=== PATIENT | female | born 1995 | race Hispanic/Latino ===

== ENCOUNTER → 2016-07-12 | Outpatient (CLI) | payer OTHER ==
[2016-07-12 15:33] LABS: BASO % 0.2 % (0.0-1.0); EOS # 0.2 K/mm3 (0.0-0.50); EOS % 2.2 % (0.0-3.0); LARGE UNSTAINED CELL # 0.1 K/mm3 (0.0-0.4); LARGE UNSTAINED CELL % 1.2 % (0.0-4.0); LYMPH # 2.6 K/mm3 (1.5-6.5); LYMPH % 24.9 % (24.0-44.0); MEAN CORPUSCULAR HGB CONC 33.7 g/dl (32.0-36.5); MEAN CORPUSCULAR VOLUME 91.8 fl (80.0-96.0); MONO # 0.4 K/mm3 (0.0-0.8); MONO % 3.4 % (0.0-5.0); NEUTROPHILS # 7.2 K/mm3 (1.8-7.7); NEUTROPHILS % 68.2 % (36.0-66.0); PLATELET COUNT, AUTOMATED 261 k/mm3 (150-450); RED CELL DISTRIBUTION WIDTH 12.6 % (11.5-14.5); WHITE BLOOD COUNT 10.5 K/mm3 (4.0-10.0)
== END ==
LOC: M LAB 13:34
PROVIDERS: ATTEND Advanced Practice Midwife
DX: Z34.82 Encounter for supervision of other normal pregnancy, second trimester (principal)

== ENCOUNTER → 2016-08-24 | Outpatient (REF) | payer OTHER | LOC: M LAB REF 16:39 | PROVIDERS: ATTEND Advanced Practice Midwife | DX: Z3A.35 35 weeks gestation of pregnancy (principal) ==

== ENCOUNTER → 2016-09-08 | Outpatient (REF) | payer OTHER ==
[~2016-09-08] MED LIST: ACET50TA PO; IBUP800T23 PO; LABE30TA PO; PRENTAB9 PO
== END ==
LOC: M LAB REF 17:23
PROVIDERS: ATTEND Advanced Practice Midwife
DX: Z3A.37 37 weeks gestation of pregnancy (principal); R03.0 Elevated blood-pressure reading, without diagnosis of hypertension

== ENCOUNTER → 2016-09-08 | Outpatient (CLI) | payer OTHER ==
[2016-09-08 18:58] LABS: MEAN CORPUSCULAR HEMOGLOBIN 31.5 pg (27.0-33.0); MEAN CORPUSCULAR HGB CONC 34.1 g/dl (32.0-36.5); MEAN CORPUSCULAR VOLUME 92.3 fl (80.0-96.0); RED CELL DISTRIBUTION WIDTH 12.9 % (11.5-14.5); WHITE BLOOD COUNT 10.2 K/mm3 (4.0-10.0)
[2016-09-08 19:17] LABS: ALT/SGPT 10 U/L (12-78); AST/SGOT 13 U/L (15-37); BILIRUBIN,TOTAL 0.3 MG/DL (0.2-1.0); CREATININE FOR GFR 0.66 MG/DL (0.55-1.02); GLOMERULAR FILTRATION RATE > 60.0 (>60); URIC ACID 4.6 MG/DL (2.6-6.0)
== END ==
LOC: M LAB 17:39
PROVIDERS: ATTEND Advanced Practice Midwife
DX: Z3A.37 37 weeks gestation of pregnancy (principal)

== ENCOUNTER 2016-09-10 11:35 | Inpatient (IN) | payer OTHER ==
[2016-09-10] VITALS (12 sets, daily range): BP systolic 100–136; BP diastolic 55–82
[2016-09-10] MEDS: miSOPROStol 50 MCG 1/2 TAB (S0191) PO SCH ×3 (13:18→21:25)
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
[2016-09-10 13:40] LABS: MEAN CORPUSCULAR HEMOGLOBIN 31.2 pg (27.0-33.0); MEAN CORPUSCULAR HGB CONC 34.9 g/dl (32.0-36.5); MEAN CORPUSCULAR VOLUME 89.4 fl (80.0-96.0); RED CELL DISTRIBUTION WIDTH 12.8 % (11.5-14.5); WHITE BLOOD COUNT 10.5 K/mm3 (4.0-10.0)
[2016-09-10 13:56] LABS: ALT/SGPT 12 U/L (12-78); AST/SGOT 13 U/L (15-37); BILIRUBIN,TOTAL 0.3 MG/DL (0.2-1.0); CREATININE FOR GFR 0.56 MG/DL (0.55-1.02); GLOMERULAR FILTRATION RATE > 60.0 (>60); URIC ACID 4.6 MG/DL (2.6-6.0)
[2016-09-11] VITALS (15 sets, daily range): BP systolic 87–166; BP diastolic 51–100
[2016-09-11] MEDS: miSOPROStol 50 MCG 1/2 TAB (S0191) PO SCH (01:26)
--- NOTE | 2016-09-11 01:50 | IPNPDOC ---
Obstetrical Progress Note Date of Service The patient was seen on 09/11/16 at 01:20. Progress Note SUBJECTIVE: Patient reports she is feeling some cramping but otherwise denies feeling contractions. Patient currently denies a headache, visual changes, or epigastric or right upper quadrant pain. OBJECTIVE: heart rate baseline 135, positive accelerations, no decelerations. Contractions are every 3-6 minutes. 3 doses of misoprostol been given in at this point. SVE: 1/80/-1, mid position, scant bloody show, intact membranes. Cephalic presentation noted with sterile vaginal exam. Kenney bulb was inserted into the cervix without difficulty and inflated with 40 mL of normal saline. VITAL SIGNS: Please see below. CURRENT LABS: Please see below. ASSESSMENT: IUP at 37 weeks 5 days gestation, preeclampsia with severe features , not in active labor, category 1 heart rate tracing. PLAN: Continue with 1 more dose of misoprostol. Anticipate Kenney bulb to follow- up within the next 6 hours. Discrete cervical ripening along with cervical change. Consider Pitocin and 4 hours. VS, I&O, 24H, Fishbone Vital Signs/I&O Vital Signs Label Value Date Time Patient Temperature 97.9 degrees F 09/10/162234 Temperature Source Tympanic 09/10/162234 Pulse 93 09/10/162234 Respiratory Rate 18 bpm 09/10/162234 Blood Pressure Assessment 134/76 (95) 09/10/162234 Source Automatic Cuff (NIBP) Pulse 96 09/10/169 Respiratory Rate 18 bpm 09/10/162338 Blood Pressure Assessment 117/82 (94) 09/10/169 Source Automatic Cuff (NIBP) Pulse 94 09/11/162 Respiratory Rate 20 bpm 09/11/16 013 Blood Pressure Assessment 131/78 (95) 09/11/16 013 Source Automatic Cuff (NIBP) Vital Signs Date Time Temp Pulse Resp B/P Pulse Ox O2 Delivery O2 Flow Rate FiO2 09/10/16 21:04 82 18 126/68 09/10/16 20:05 97.9 09/10/16 12:20 Room Air I&O- Last 24 Hours up to 6 AM 09/11/16 06:00 Intake Total 500 ml Balance 500 ml Laboratory Data 24H LABS Laboratory Tests 2 09/10/16 11:48: Serology Scanned Report Hepatitis B Testing 3/10/17 13:08: Creatinine 0.56, Aspartate Amino Transf (AST/SGOT) 13L, Alanine Aminotransferase (ALT/SGPT) 12, Lactate Dehydrogenase 200, Total Bilirubin 0.3, Uric Acid 4.6, Glomerular Filtration Rate > 60.0, Syphilis Serology NONREACTIVE CBC/BMP Laboratory Tests 09/10/16 13:08 Aspartate Amino Transf (AST/SGOT) 13 L, Alanine Aminotransferase (ALT/SGPT) 12, Lactate Dehydrogenase 200, Total Bilirubin 0.3, Uric Acid 4.6, Red Blood Count 4.16, Mean Corpuscular Volume 89.4, Mean Corpuscular Hemoglobin 31.2, Mean Corpuscular Hemoglobin Concent 34.9, Red Cell Distribution Width 12.8 DAMON SIMEON CNM Sep 11, 2016 01:38
[2016-09-11] MEDS ORDERED: LR 1,000 ML IV SCH (01:56)
[2016-09-11] MEDS ORDERED: OXYTOCIN DRIP 30 UNITS in APPROPRIATE DILUENT 1 EA IV SCH ×2 (02:00→11:33)
[2016-09-11] MEDS ORDERED: BUTORPHANOL 2 MG/ML INJ (J0595) IV ONE (02:45)
[2016-09-11] MEDS ORDERED: PROMETHAZINE INJ 25 MG/ML VIAL (J2550) IV ONE (02:45)
[2016-09-11] MEDS ORDERED: PENICILLIN G POTASSIUM IV 5 MU in D5W MINI-BAG PLUS 100 ML IV ONE (06:00)
--- NOTE | 2016-09-11 08:07 | IPNPDOC ---
Obstetrical Progress Note Date of Service The patient was seen on 09/11/16 at 07:45. Progress Note SUBJECTIVE: Patient appears to be comfortable after receiving a dose of Stadol and Phenergan. She is sleeping but easily arousable. OBJECTIVE: Kenney bulb was out at 05:20 and Pitocin was started at 05 41. heart rate baseline 140, moderate variability, positive accelerations, no decelerations. Contractions are every 1-6 minutes. Pitocin is presently a 6 mU/ m. VITAL SIGNS: Please see below. ASSESSMENT: IUP at 37 weeks 5 days gestation, a clamp so severe features, not in active labor, category 1 heart rate tracing PLAN: Today with Pitocin induction. Patient may receive an epidural if she desires at any point. VS, I&O, 24H, Fishbone Vital Signs/I&O Vital Signs Date Time Temp Pulse Resp B/P Pulse Ox O2 Delivery O2 Flow Rate FiO2 09/11/16 07:16 98.4 73 16 118/65 09/10/16 12:20 Room Air I&O- Last 24 Hours up to 6 AM 09/11/16 05:59 Intake Total 1200 ml Balance 1200 ml Laboratory Data 24H LABS CBC/BMP DAMON SIMEON CNM Sep 11, 2016 08:07
[2016-09-11] MEDS: PRENATAL VITAMIN TAB PO SCH (09:00)
[2016-09-11] MEDS: NICOTINE 7 MG/24 HR TRANSDERMAL TD SCH (09:00)
[2016-09-11] MEDS ORDERED: FENTANYL 2MCG/ML ROPIVACAINE 0.2% NACL 250 ML CADD As Ordered ONE (09:19)
--- NOTE | 2016-09-11 09:26 | IPNPDOC ---
Obstetrical Progress Note Date of Service The patient was seen on 09/11/16 at 09:18. Progress Note SUBJECTIVE: Patient reports she is uncomfortable and would like an epidural. OBJECTIVE: SVE: 580/-1. Patient has spontaneously ruptured prior to cervical exam. Fluid is clear and a moderate amount. Pitocin is at 10 mU/m. heart rate baseline 150, moderate variability, no accelerations, early and variable decelerations noted with contractions. Vital signs: 98.4, 90, 18, 120/62. ASSESSMENT: IUP at 37 weeks 5 days gestation, active labor, preeclampsia was severe features, category 2 heart rate tracing PLAN: Patient to get epidural per desire for pain management. Pitocin can be decreased down to 4 mU/m until after patient received epidural and with resolution of variable decelerations. Anticipate cervical change and spontaneous vaginal delivery. Dr. Marin aware of patient status and plan of care. DAMON SIMEON CNM Sep 11, 2016 09:26
[2016-09-11 09:42] LABS: MEAN CORPUSCULAR HEMOGLOBIN 30.5 pg (27.0-33.0); MEAN CORPUSCULAR HGB CONC 34.2 g/dl (32.0-36.5); MEAN CORPUSCULAR VOLUME 89.1 fl (80.0-96.0); RED CELL DISTRIBUTION WIDTH 12.7 % (11.5-14.5); WHITE BLOOD COUNT 16.5 K/mm3 (4.0-10.0)
[2016-09-11] MEDS ORDERED: PENICILLIN G POTASSIUM IV 2.5 MU in D5W 100 ML IV SCH (10:00)
[2016-09-11] MEDS ORDERED: METHYLERGONOVINE MALEATE 0.2 MG TAB PO PRN (11:45)
[2016-09-11] MEDS ORDERED: MEASLES,MUMPS,RUBELLA VACCINE INJ (MMR-II) (90707) SC SCH (11:45)
[2016-09-11] MEDS ORDERED: RHOGAM 300 MCG (1500 IU) INJ (J2790) IM SCH (11:45)
[2016-09-11] MEDS ORDERED: ACETAMINOPHEN 500 MG TAB PO PRN (11:45)
[2016-09-11] MEDS ORDERED: DOCUSATE SODIUM 100 MG CAP PO PRN (11:45)
[2016-09-11] MEDS ORDERED: DIBUCAINE 1% OINTMENT 30GM TOP PRN (11:45)
[2016-09-11] MEDS ORDERED: LIDOCAINE 1% MDV INJ 50 ML VIAL INFIL ONE (11:45)
[2016-09-11] MEDS ORDERED: ANUSOL HC CREAM 30GM TOP PRN (11:45)
--- NOTE | 2016-09-11 11:56 | DNPDOC ---
Delivery Note Delivery Note Nilda is a 20-year-old now G 1 P 1001 at 37.5 weeks' gestation who presented to labor and delivery for induction of labor due to preeclampsia with severe features. Her severe feature included frequent daily headaches for the last 2 days. She had 4 doses of Cytotec, a Kenney bulb, and Pitocin (26.7 mL ) for her induction. She ruptured spontaneously at 0906 to a moderate amount of clear fluid. Cervical exam proved patient was in active labor at 0914. She received an epidural for pain management that provided minimal relief. She progressed to fully dilated at 1043. Patient pushed to a spontaneous vaginal delivery at 1053 to a living female in the OA position with restitution to LOT. No nuchal cord noted. Shoulders delivered with ease and the corpus immediately followed. Baby placed on maternal abdomen crying and active. Cord clamped 2 and cut by patient 's sister after pulsation ceased. Spontaneous delivery of intact placenta with a three-vessel cord by Alonzo mechanism at 1059. Uterine hemostasis achieved by rapid infusion of IV Pitocin and uterine fundal massage. Perineum and vagina inspected and found to have a first degree perineal laceration that was repaired with a 3. [address]-1. Lidocaine 1% was used prior to repairing the perineal laceration. An eraser size hematoma is noted at the very base of the introitus. An ice diaper was applied to perineum after repair. EBL 150. Infant's 9/9. Weight 5 lbs. 5 oz, 2414 g. [place]'s name is Mili Kirk and she is bottle-feeding. Mother and baby are stable. Placenta sent to pathology due to marginal insertion of the cord, patient's preeclampsia was severe features, that is small for gestational age, and precipitous delivery. DAMON SIMEON CNM Sep 11, 2016 11:56
[2016-09-11] MEDS: IBUPROFEN 800 MG TAB PO PRN (12:30)
[2016-09-11] MEDS ORDERED: LABETALOL HCL 100 MG/20 ML VIAL IV STA (18:53)
[2016-09-11] MEDS: LABETALOL 200 MG TAB PO SCH (19:47)
--- NOTE | 2016-09-11 20:22 | IPNPDOC ---
Obstetrical Progress Note Date of Service The patient was seen on 09/11/16 at 19:30. Progress Note SUBJECTIVE: Patient was in the shower when I went to assess her. Instructed patient to get out of the shower. Also instructed nursing staff the patient should not be in the shower if she has a severe range blood pressure. Patient presently denies vaginal symptoms of preeclampsia. OBJECTIVE: PHYSICAL EXAMINATION: Assessment not done due to patient being in the shower. VITAL SIGNS: Please see below. CURRENT LABS: Please see below. ASSESSMENT: Less than 12 hours post-vaginal delivery, preeclampsia with severe features PLAN: Reviewed blood pressures with Dr. Marin. Patient was to get labetalol IV 20 mg stat via verbal order for verbalized blood pressure of 162/100. Patient never received IV labetalol dose and this verbalized blood pressure is not documented in the patient's chart. Reviewed with nursing staff why the patient did not receive IV labetalol and the response that they provided was that they were waiting for the order to be profiled through the pharmacy, although it was a stat medication that should've been given within 5 minutes of verbal order. It was also stated that they did not feel comfortable pushing IV labetalol on without a cardiac rehab nurse. Reviewed policy with nurses. 1 hour after verbal order patient had still not received IV labetalol nor a repeat blood pressure and the provider was not notified. Requested a repeat blood pressure that took more than 15 minutes to obtain from the staff. Blood pressure was not in the severe range. Staff instructed that the patient not be given IV labetalol. Reviewed with Dr. Marin and patient is to be started on labetalol 200 mg by mouth twice a day. Preeclamptic profile and a CBC ordered for her O600 on 09/12/2016. VS, I&O, 24H, Fishbone Vital Signs/I&O Vital Signs Date Time Temp Pulse Resp B/P Pulse Ox O2 Delivery O2 Flow Rate FiO2 09/11/16 19:47 82 143/82 09/11/16 18:33 98.5 18 09/10/16 12:20 Room Air I&O- Last 24 Hours up to 6 AM 09/11/16 06:00 Intake Total 2009 ml Balance 2009 ml Vital Signs Label Value Date Time Patient Temperature 98.5 degrees F 09/11/16 183 Temperature Source Tympanic 09/11/16 1833 Pulse 97 09/11/16 1833 Respiratory Rate 18 bpm 09/11/16 183 Blood Pressure Assessment 156/100 (118) 09/11/16 1833 Source Automatic Cuff (NIBP) Blood Pressure Assessment 143/75 (97) 09/11/16 1510 Source Automatic Cuff (NIBP) Laboratory Data CBC/BMP Laboratory Tests 09/11/16 09:30 Red Blood Count 4.68, Mean Corpuscular Volume 89.1, Mean Corpuscular Hemoglobin 30.5, Mean Corpuscular Hemoglobin Concent 34.2, Red Cell Distribution Width 12.7 DAMON SIMEON CNM Sep 11, 2016 20:22
[2016-09-12] VITALS (9 sets, daily range): BP systolic 130–176; BP diastolic 65–110
[2016-09-12 06:08] LABS: MEAN CORPUSCULAR HEMOGLOBIN 29.5 pg (27.0-33.0); MEAN CORPUSCULAR HGB CONC 33.1 g/dl (32.0-36.5); MEAN CORPUSCULAR VOLUME 89.1 fl (80.0-96.0); RED CELL DISTRIBUTION WIDTH 12.9 % (11.5-14.5); WHITE BLOOD COUNT 11.7 K/mm3 (4.0-10.0)
[2016-09-12 06:49] LABS: ALT/SGPT 10 U/L (12-78); AST/SGOT 22 U/L (15-37); BILIRUBIN,TOTAL 0.3 MG/DL (0.2-1.0); CREATININE FOR GFR 0.59 MG/DL (0.55-1.02); GLOMERULAR FILTRATION RATE > 60.0 (>60); URIC ACID 4.8 MG/DL (2.6-6.0)
[2016-09-12] MEDS: NICOTINE 7 MG/24 HR TRANSDERMAL TD SCH (09:00)
[2016-09-12] MEDS: PRENATAL VITAMIN TAB PO SCH (09:30)
[2016-09-12] MEDS: LABETALOL 200 MG TAB PO SCH ×2 (09:31→21:22)
--- NOTE | 2016-09-12 13:15 | IPNPDOC ---
Obstetrical Progress Note Date of Service The patient was seen on 09/12/16 at 12:46. Progress Note SUBJECTIVE: Patient reports she feels fine. Denies pain. Denies preeclamptic symptoms. Voiding without difficulty. OBJECTIVE: PHYSICAL EXAMINATION: VITAL SIGNS: Please see below. FUNDUS: Firm and 1 below uterus. Nontender. PERINEUM: Lochia moderate and bright red. EXTREMITIES: Bilateral lower legs and feet with generalized edema. Reflexes 3+. CURRENT LABS: Please see below. ASSESSMENT: Day 1 , severe preeclampsia PLAN: continue with PO labetalol. Continue with supportive nursing care. Anticipate discharge tomorrow with follow up in office for BP. Reviewed danger signs that patient needs to report to nursing staff. VS, I&O, [facility]O Vital Signs Date Time Temp Pulse Resp B/P Pulse Ox O2 Delivery O2 Flow Rate FiO2 09/12/16 10:10 97.9 100 20 148/82 09/10/16 12:20 Room Air I&O- Last 24 Hours up to 6 AM 09/12/16 05:59 Intake Total 810 ml Output Total 150 ml Balance 660 ml Laboratory Data 24H LABS Laboratory Tests 2 09/12/16 05:33: Creatinine 0.59, Aspartate Amino Transf (AST/SGOT) 22, Alanine Aminotransferase (ALT/SGPT) 10L, Lactate Dehydrogenase 224, Total Bilirubin 0.3, Uric Acid 4.8, Glomerular Filtration Rate > 60.0 CBC/BMP Laboratory Tests 09/12/16 05:33 Aspartate Amino Transf (AST/SGOT) 22, Alanine Aminotransferase (ALT/SGPT) 10 L, Lactate Dehydrogenase 224, Total Bilirubin 0.3, Uric Acid 4.8 09/12/16 05:34 Red Blood Count 3.79 L, Mean Corpuscular Volume 89.1, Mean Corpuscular Hemoglobin 29.5, Mean Corpuscular Hemoglobin Concent 33.1, Red Cell Distribution Width 12.9 DAMON SIMEON CNM Sep 12, 2016 12:47
[2016-09-12] MEDS ORDERED: LABETALOL 100 MG TAB PO ONE (23:00)
[2016-09-12] MEDS: IBUPROFEN 800 MG TAB PO PRN (23:15)
[2016-09-13 00:30] VITALS: BP 102/50
[2016-09-13 02:12] VITALS: BP 96/55
[2016-09-13 06:06] VITALS: BP 127/73
--- NOTE | 2016-09-13 07:49 | DS.PDOC ---
Discharge Summary General Date of Admission Sep 10, 2016 at 11:35 Date of Discharge 09/10/2016 Attending Physician: DAMON SIMEON CNM Specialist/Consultants Involve: RICKY MARIN MD. Discharge Summary PROCEDURES PERFORMED DURING STAY: None. ADMITTING DIAGNOSES: 1. IUP at 37 weeks 4 days gestation. 2. preeclampsia was severe features. DISCHARGE DIAGNOSES: 1. Vaginal delivery, 2 days . 2. Preeclampsia. COMPLICATIONS/CHIEF COMPLAINT: Induction For Pre-Eclampsia with severe features. HISTORY OF PRESENT ILLNESS: Patient is a 20-year-old 001 who is 2 days . She was an induction for preeclampsia was severe features at 37 weeks 4 days gestation and delivered at 37 weeks 5 days gestation. After delivery she exhibited some high range blood pressures and was put on labetalol 200 mg by mouth twice a day after consulting Dr. Marin. Left-sided patient exhibited a severe range pressure and her labetalol was increased by 100 mg. Patient's blood pressures have been managed on labetalol 300 mg at present. She denies signs or symptoms of preeclampsia at this time. DISCHARGE MEDICATIONS: Labetalol 300 mg by mouth twice a day, OTC Motrin and Tylenol. ALLERGIES: Please see below. LABORATORY DATA: Please see below. ACTIVITY: As tolerated. DIET: Regular. DISCHARGE INSTRUCTIONS: 1. Patient may be discharged home after 5 PM today if blood pressures are stable.. 2. Patient's follow-up in the office this Tuesday for blood pressure check. Reviewed preeclamptic signs and symptoms. Patient instructed to call provider with any of these symptoms. 3. Reviewed signs of mastitis, endometritis, hemorrhage, and DVT. Educated on breast care, pelvic rest, eli care.. DISCHARGE CONDITION: Stable. Vital Signs/I&Os Vital Signs Date Time Temp Pulse Resp B/P Pulse Ox O2 Delivery O2 Flow Rate FiO2 09/13/16 06:06 96.6 83 18 127/73 09/10/16 12:20 Room Air Discharge Medications No Active Prescriptions or Reported Meds Allergies Coded Allergies: No Known Drug Allergy (Verified Allergy, Unknown, 09/10/16) DAMON SIMEON CNM Sep 13, 2016 07:49
[2016-09-13] MEDS ORDERED: LABE30TA PO (07:51)
[2016-09-13] MEDS ORDERED: LABETALOL 100 MG TAB PO SCH (09:00)
[2016-09-13] MEDS: NICOTINE 7 MG/24 HR TRANSDERMAL TD SCH (09:00)
[2016-09-13 10:00] VITALS: BP 133/75
[2016-09-13] MEDS: PRENATAL VITAMIN TAB PO SCH (10:07)
[2016-09-13 14:00] VITALS: BP 136/71
[2016-09-13] MEDS ORDERED: IBUP800T23 PO (16:51)
[2016-09-13] MEDS ORDERED: PRENTAB9 PO (16:51)
[2016-09-13] MEDS ORDERED: ACET50TA PO (16:51)
== END 2016-09-13 17:35 | disposition home or self-care (01) | DRG 560 ==
LOC: M LDI 11:35 → M OBS 09-11 14:47
PROVIDERS: ADMIT Advanced Practice Midwife; ATTEND Advanced Practice Midwife
PROC: 3E0P7GC Introduction of Other Therapeutic Substance into Female Reproductive, Via Natural or Artificial Opening (ICD-10-PCS; 2016-09-10)
PROC: 10E0XZZ Delivery of Products of Conception, External Approach (ICD-10-PCS; principal; 2016-09-11)
PROC: 0HQ9XZZ Repair Perineum Skin, External Approach (ICD-10-PCS; 2016-09-11)
DX: O14.14 Severe pre-eclampsia complicating childbirth (principal); O71.7 Obstetric hematoma of pelvis; Z3A.37 37 weeks gestation of pregnancy; O99.334 Smoking (tobacco) complicating childbirth; F17.210 Nicotine dependence, cigarettes, uncomplicated; O62.3 Precipitate labor; O70.0 First degree perineal laceration during delivery; Z37.0 Single live birth

== ENCOUNTER → 2017-03-13 | Outpatient (REF) | payer OTHER ==
[~2017-03-13] MED LIST changes: +IBUP1TAB7 PO; -IBUP800T23 PO
== END ==
LOC: M LAB REF 21:55
PROVIDERS: ATTEND Physician Assistant Medical
DX: J02.9 Acute pharyngitis, unspecified (principal)

== ENCOUNTER 2018-01-04 23:17 | Emergency (ER) | payer OTHER ==
[2018-01-05 01:18] LABS: BASO % 0.2 % (0.0-1.0); EOS # 0.2 10^3/uL (0.0-0.50); EOS % 1.8 % (0.0-3.0); HEMATOCRIT 44.4 % (36.0-47.0); HEMOGLOBIN 15.5 g/dl (12.0-15.5); IMMATURE GRANULOCYTE % 0.3 % (0-3.0); LYMPH # 3.6 10^3/uL (1.5-6.5); LYMPH % 32.6 % (24.0-44.0); MEAN CORPUSCULAR HEMOGLOBIN 30.8 pg (27.0-33.0); MEAN CORPUSCULAR HGB CONC 34.9 g/dl (32.0-36.5); MEAN CORPUSCULAR VOLUME 88.1 fl (80.0-96.0); MONO # 0.6 10^3/uL (0.0-0.8); MONO % 5.2 % (0.0-5.0); NEUTROPHILS # 6.6 10^3/uL (1.8-7.7); NEUTROPHILS % 59.9 % (36.0-66.0); PLATELET COUNT, AUTOMATED 238 10^3/uL (150-450); RED BLOOD COUNT 5.04 10^6/uL (4.00-5.40); RED CELL DISTRIBUTION WIDTH 12.8 % (11.5-14.5); WHITE BLOOD COUNT 11.1 10^3/uL (4.0-10.0)
[2018-01-05] MEDS: ACETAMINOPHEN TAB 650MG DOSE (2X325MG) PO (01:20)
[2018-01-05] MEDS: diphenhydrAMINE INJ 50MG/ML VIAL (J1200) IV (01:20)
[2018-01-05] MEDS: FAMOTIDINE INJ 20MG/2ML VIAL (S0028) IVP (01:20)
[2018-01-05] MEDS: methylPREDNISolone INJ 125 MG/2 ML VIAL (J2930) IV (01:20)
[2018-01-05 01:37] LABS: ANION GAP 11 MEQ/L (8-16); BLOOD UREA NITROGEN 7 MG/DL (7-18); CALCIUM LEVEL 8.4 MG/DL (8.5-10.1); CARBON DIOXIDE LEVEL 24 MEQ/L (21-32); CHLORIDE LEVEL 109 MEQ/L (98-107); GLOMERULAR FILTRATION RATE > 60.0 (>60); GLUCOSE, FASTING 82 MG/DL (70-100); POTASSIUM SERUM 3.9 MEQ/L (3.5-5.1); SODIUM LEVEL 144 MEQ/L (136-145)
== END 2018-01-05 03:02 | disposition home or self-care (01) ==
LOC: M ED 23:17
DX: T78.40XA Allergy, unspecified, initial encounter (principal); Y92.9 Unspecified place or not applicable; Y93.9 Activity, unspecified; Z88.0 Allergy status to penicillin
CPT/HCPCS: J1200

== ENCOUNTER 2018-07-28 16:27 | Emergency (ER) | payer OTHER, SELFPAY ==
[~2018-07-28] VITALS: Ht 160 cm; Wt 95.0 kg
[~2018-07-28 16:27] MED LIST changes: -ACET50TA PO; +LABE300T2 PO; -LABE30TA PO; +MAPA500T2 PO; +PRED20TA PO
[2018-07-28] MEDS ORDERED: ALBUTEROL 90 MCG/ACT 8GM HFA INHALER INH ONE (17:45)
[2018-07-28] MEDS ORDERED: VENTAER INH (18:02)
[2018-07-28] MEDS ORDERED: MUCI600T37 PO (18:02)
[2018-07-28 18:08] VITALS: BP 134/80
== END 2018-07-28 18:28 | disposition home or self-care (01) ==
LOC: M ED 16:27
DX: J40 Bronchitis, not specified as acute or chronic (principal); F41.9 Anxiety disorder, unspecified; F17.210 Nicotine dependence, cigarettes, uncomplicated; Z88.0 Allergy status to penicillin

== ENCOUNTER 2018-08-06 18:12 | Emergency (ER) | payer OTHER ==
[~2018-08-06] VITALS: Ht 160 cm; Wt 90.9 kg
[2018-08-06 18:12] VITALS: BP 127/74
[~2018-08-06 18:12] MED LIST changes: +MUCI600T37 PO; +VENTAER INH
[2018-08-06] MEDS ORDERED: BENZONATATE 100 MG CAP PO ONE (19:00)
[2018-08-06] MEDS ORDERED: CEFDINIR 300 MG CAP (OMNICEF) PO ONE (19:00)
[2018-08-06] MEDS ORDERED: BENZ200C70 PO (19:01)
[2018-08-06] MEDS ORDERED: CEFD1CAP8 PO (19:01)
== END 2018-08-06 19:23 | disposition home or self-care (01) ==
LOC: M ED 18:12
DX: H66.001 Acute suppurative otitis media without spontaneous rupture of ear drum, right ear (principal); Z88.0 Allergy status to penicillin

== ENCOUNTER 2018-12-04 19:33 | Emergency (ER) | payer OTHER ==
[~2018-12-04] VITALS: Ht 160 cm; Wt 90.9 kg
[2018-12-04 19:33] VITALS: BP 130/83
[~2018-12-04 19:33] MED LIST changes: +BENZ200C70 PO; +CEFD1CAP8 PO
== END 2018-12-04 20:05 | disposition left against medical advice (07) ==
LOC: M ED 19:33
DX: R05 Cough (principal); Z53.21 Procedure and treatment not carried out due to patient leaving prior to being seen by health care provider

== ENCOUNTER 2019-05-06 19:17 | Emergency (ER) | payer OTHER ==
[~2019-05-06] VITALS: Ht 160 cm; Wt 90.9 kg
[2019-05-06 20:02] VITALS: BP 141/67
--- NOTE | 2019-05-07 01:43 | REP ---
Clinical: Trauma. Technique: AP, lateral, bilateral oblique views right hand . Findings: The osseous structures and joint spaces are intact and normal. There is no evidence for acute fracture or dislocation. Surrounding soft tissues are unremarkable. No subcutaneous emphysema or radiodense foreign body. Impression: No acute fracture or dislocation. Electronically Signed by Bin Norton MD 05/07/2019 01:34 A
== END 2019-05-06 20:46 | disposition home or self-care (01) ==
LOC: M ED 19:17
DX: S60.221A Contusion of right hand, initial encounter (principal); W19.XXXA Unspecified fall, initial encounter; Y92.099 Unspecified place in other non-institutional residence as the place of occurrence of the external cause; Y93.89 Activity, other specified; Y99.9 Unspecified external cause status; F17.200 Nicotine dependence, unspecified, uncomplicated; Z88.0 Allergy status to penicillin

== ENCOUNTER → 2020-02-14 | Outpatient (REF) | payer OTHER ==
[2020-03-20 07:22] LABS: BASO % 0.3 % (0.0-1.0); EOS # 0.2 10^3/uL (0.0-0.5); HEMATOCRIT 42.2 % (36.0-47.0); HEMOGLOBIN 14.9 g/dl (12.0-15.5); LYMPH # 3.2 10^3/uL (1.5-5.0); LYMPH % 33.7 % (24.0-44.0); MEAN CORPUSCULAR HEMOGLOBIN 31.2 pg (27.0-33.0); MEAN CORPUSCULAR HGB CONC 35.3 g/dl (32.0-36.5); MEAN CORPUSCULAR VOLUME 88.3 fl (80.0-96.0); MONO # 0.5 10^3/uL (0.0-0.8); MONO % 5.6 % (0.0-5.0); NEUTROPHILS # 5.5 10^3/uL (1.5-8.5); NEUTROPHILS % 58.1 % (36.0-66.0); PLATELET COUNT, AUTOMATED 264 10^3/uL (150-450); RED BLOOD COUNT 4.78 10^6/uL (4.00-5.40); WHITE BLOOD COUNT 9.5 10^3/uL (4.0-10.0)
[2020-03-23 11:13] LABS: CHLAMYDIA DNA AMPLIFICATION NEGATIVE (NEGATIVE); GC DNA AMPLIFICATION NEGATIVE (NEGATIVE)
[2020-04-02 06:52] LABS: HEPATITIS B SURFACE ANTIGEN NEGATIVE (NEGATIVE); HEPATITIS C VIRUS ABY INDEX 0.1 INDEX (<0.8); HIV 1&2 SCREEN CENTAUR NEGATIVE (NEGATIVE)
== END ==
LOC: M SFHCWAGY 14:50
PROVIDERS: ATTEND Advanced Practice Midwife
DX: Z87.59 Personal history of other complications of pregnancy, childbirth and the puerperium (principal); Z34.91 Encounter for supervision of normal pregnancy, unspecified, first trimester

== ENCOUNTER → 2020-03-14 | Outpatient (CLI) | payer OTHER ==
[2020-03-14 19:50] LABS: TOTAL PROTEIN,RANDOM URINE 10.1 MG/DL (0.0-12.0)
[2020-03-14 20:18] LABS: ALT/SGPT 15 U/L (12-78); BILIRUBIN,TOTAL 0.5 MG/DL (0.2-1.0); CREATININE FOR GFR 0.61 MG/DL (0.55-1.30); GLOMERULAR FILTRATION RATE > 60.0 (>60); LDH LACTATE DEHYDROGENASE 189 U/L (84-246); URIC ACID 2.8 MG/DL (2.6-6.0)
== END ==
LOC: M PLALAB 14:26
PROVIDERS: ATTEND Advanced Practice Midwife
DX: O09.292 Supervision of pregnancy with other poor reproductive or obstetric history, second trimester (principal)

== ENCOUNTER → 2020-04-14 | Outpatient (CLI) | payer OTHER ==
--- NOTE | 2020-04-17 13:29 | REP ---
RENAL SONOGRAPHY HISTORY: Chronic kidney disease stage III. Frequency of urination. FINDINGS: Renal cortical echogenicity pattern is normal and contours are smooth. No hydronephrosis is seen. Multiple bilateral renal cysts are observed. Right renal dimensions are 10.7 x 6.4 x 5.4 cm. The left kidney measures 11.9 x 5.3 x 5.6 cm. Left-sided renal cysts include a septated 5.4 cm cyst at the upper pole, a 3.2 cm cyst in the upper pole, and a 0.9 cm cyst in the lower pole. On the right, there are three upper pole cysts visible measuring 0.9, 3.4, and 1.2 cm in greatest diameter respectively. IMPRESSION: Bilateral renal cortical cysts. No mass or hydronephrosis is seen. MTDD
== END ==
LOC: M WHC 14:25
PROVIDERS: ATTEND Advanced Practice Midwife
DX: O09.292 Supervision of pregnancy with other poor reproductive or obstetric history, second trimester (principal); Z3A.00 Weeks of gestation of pregnancy not specified; O26.832 Pregnancy related renal disease, second trimester; N28.1 Cyst of kidney, acquired

== ENCOUNTER → 2020-05-15 | Outpatient (CLI) | payer OTHER ==
--- NOTE | 2020-05-15 18:30 | REP ---
INDICATION: F/U ANATOMY. COMPARISON: 04/14/2020 TECHNIQUE: Follow-up for anatomy screen completion FINDINGS: Scanning demonstrates a viable single intrauterine gestation in a cephalic lie. motion is observed and heart rate is recorded at 156 beats per minute. An anterior, grade 1 placenta is seen without evidence of previa. Amniotic fluid is subjectively normal. Closed cervical length is measured at 4.3 cm transabdominally. No extrauterine abnormality is observed. There has been appropriate interval growth. No anomaly is seen. The following anatomic structures are identified and felt to be sonographically unremarkable: diaphragm, left ventricular outflow tract. The right ventricular outflow tract and four-chamber view are still suboptimally visualized due to position. Remainder of the anatomy was previously seen and unremarkable. Biometry chart: BPD 5.6 cm; 23 weeks 1 days Head circumference 21.9 cm; 24 weeks 0 days Abdominal circumference 19.3 cm; 24 weeks 0 days Femur length 4 cm; 22 weeks 6 days Humeral length 3.8 cm; 23 weeks 3 days HC/AC ratio normal 1.14 Cephalic index normal 0.69 (normal range is 0.70-0.86) Estimated weight 609 grams, 1 pounds 5 ounces, 41st percentile for 23 weeks 4 days. IMPRESSION: Viable single intrauterine gestation at 23 weeks 3 days by today's composite sonographic criteria. Expected gestational age estimate based on prior sonography is 23 weeks is 4 days. SOCORRO by prior sonography 09/07/2020 . No anomaly. Anatomy screen still incomplete as the four-chamber view and left ventricular outflow tract are still not visible. This is due to lie <Electronically signed by Kishan Suarez > 05/15/20 0415
== END ==
LOC: M WHC 13:44
PROVIDERS: ATTEND Advanced Practice Midwife
DX: Z34.92 Encounter for supervision of normal pregnancy, unspecified, second trimester (principal); Z3A.23 23 weeks gestation of pregnancy

== ENCOUNTER → 2020-06-06 | Outpatient (REF) | payer OTHER ==
[2020-06-06 16:20] LABS: HEMATOCRIT 40.2 % (36.0-47.0); HEMOGLOBIN 13.4 g/dl (12.0-15.5); MEAN CORPUSCULAR HEMOGLOBIN 30.7 pg (27.0-33.0); MEAN CORPUSCULAR HGB CONC 33.3 g/dl (32.0-36.5); MEAN CORPUSCULAR VOLUME 92.2 fl (80.0-96.0); PLATELET COUNT, AUTOMATED 247 10^3/uL (150-450); RED BLOOD COUNT 4.36 10^6/uL (4.00-5.40); WHITE BLOOD COUNT 9.2 10^3/uL (4.0-10.0)
== END ==
LOC: M PLALAB 13:20
PROVIDERS: ATTEND Advanced Practice Midwife
DX: Z3A.22 22 weeks gestation of pregnancy (principal)

== ENCOUNTER → 2020-07-10 | Outpatient (CLI) | payer OTHER ==
--- NOTE | 2020-07-10 16:56 | REP ---
INDICATION: F/U ANATOMY. COMPARISON: 05/15/2020. TECHNIQUE: Real-time sonographic evaluation of the gravid uterus performed. FINDINGS: Estimated gestational age is31 weeks 4 days, EDC 09/07/2020. Today's measurements indicate appropriate growth. Presentation: Cephalic Placenta anterior, grade 2, without evidence of placenta previa. heart rate is recorded at 139 beats per minute. Amniotic fluid is subjectively normal. OLIVIA 13.3, normal range 8.7-24.0. Closed cervical length is measured at 4.1 cm. Biometry chart: BPD: 76 mm, 30 weeks 4 days, 37th percentile. HC: 292 mm, 32 weeks 1 days, 60th percentile AC: 276 mm, 31 weeks 4 days, 52nd percentile Femur length: 57 mm, 30 weeks 0 days, 16 3 percentile HC to AC ratio: 1.06, normal range 0.96-1.15. Estimated weight: 1694g, 26th percentile. The four-chamber heart as well as right and left ventricular outflow tracts are visualized and appear grossly unremarkable. IMPRESSION: Viable single intrauterine gestation as above. <Electronically signed by Trent Black > 07/10/20 [id number]
== END ==
LOC: M WHC 11:54
PROVIDERS: ATTEND Advanced Practice Midwife
DX: Z36.2 Encounter for other antenatal screening follow-up (principal); O09.292 Supervision of pregnancy with other poor reproductive or obstetric history, second trimester; Z3A.31 31 weeks gestation of pregnancy

== ENCOUNTER → 2020-08-11 | Outpatient (REF) | payer OTHER | LOC: M SFHCWAGY 13:32 | PROVIDERS: ATTEND Obstetrics & Gynecology | DX: Z3A.38 38 weeks gestation of pregnancy (principal) ==

== ENCOUNTER 2020-09-11 12:33 | Inpatient (IN) | payer OTHER ==
[2020-09-11] VITALS (9 sets, daily range): BP systolic 105–134; BP diastolic 56–74
[~2020-09-11] VITALS: Ht 160 cm; Wt 97.6 kg
[2020-09-11] MEDS ORDERED: ASPI81CH10 (12:56)
[2020-09-11 13:55] LABS: HEMATOCRIT 40.6 % (36.0-47.0); HEMOGLOBIN 13.9 g/dl (12.0-15.5); MEAN CORPUSCULAR HEMOGLOBIN 30.2 pg (27.0-33.0); MEAN CORPUSCULAR HGB CONC 34.2 g/dl (32.0-36.5); MEAN CORPUSCULAR VOLUME 88.1 fl (80.0-96.0); PLATELET COUNT, AUTOMATED 229 10^3/uL (150-450); RED BLOOD COUNT 4.61 10^6/uL (4.00-5.40); WHITE BLOOD COUNT 10.6 10^3/uL (4.0-10.0)
[2020-09-11 14:19] LABS: ALT/SGPT 10 U/L (12-78); BILIRUBIN,TOTAL 0.4 MG/DL (0.2-1.0); CREATININE FOR GFR 0.57 MG/DL (0.55-1.30); GLOMERULAR FILTRATION RATE > 60.0 (>60); LDH LACTATE DEHYDROGENASE 174 U/L (84-246); URIC ACID 4.5 MG/DL (2.6-6.0)
[2020-09-11 14:26] LABS: APPEARANCE, URINE HAZY (CLEAR); BACTERIA, URINE AUTO NEGATIVE (NEGATIVE); BILIRUBIN, URINE AUTO NEGATIVE (NEGATIVE); BLOOD, URINE BLOOD NEGATIVE (NEGATIVE); COLOR, URINE YELLOW (YELLOW); GLUCOSE, URINE (UA) AUTO NEGATIVE (NEGATIVE); KETONE, URINE AUTO NEGATIVE (NEGATIVE); LEUKOCYTE ESTERASE, URINE AUTO NEGATIVE (NEGATIVE); MUCUS, URINE SMALL (NEGATIVE); NITRITE, URINE AUTO NEGATIVE (NEGATIVE); PROTEIN, URINE AUTO 1+ mg/dL (NEGATIVE); RBC, URINE AUTO 1 /HPF (0-3); SPECIFIC GRAVITY URINE AUTO 1.023 (1.002-1.035); SQUAMOUS EPITHELIAL CELL UR AU 3 /HPF (0-6); UROBILINOGEN, URINE AUTO 0.2 mg/dL (0.0-2.0); WBC, URINE AUTO 2 /HPF (0-3)
[2020-09-11] MEDS: miSOPROStol 50MCG 1/2 TABLET PO SCH ×2 (14:26→18:49)
[2020-09-11 14:56] LABS: TOTAL PROTEIN,RANDOM URINE 44.2 MG/DL (0.0-12.0)
[2020-09-11] MEDS ORDERED: OXYTOCIN DRIP 30 UNITS in IV 1 EA IV SCH (23:15)
[2020-09-11] MEDS ORDERED: LR 1,000 ML IV SCH (23:15)
--- NOTE | 2020-09-11 23:23 | HPEPDOC ---
Obstetrical History & Physical General Date of Admission Sep 11, 2020 at 12:33 History of Present Illness 24-year-old 2 para 1 who presents at 40 weeks 4 days estimated gestational age for induction of labor secondary to gestational hypertension. She was seen last week and again today in the office where she was noted to have elevated blood pressures. She denies any symptoms at this time. Chief Complaint: Gestational Hypertension, Induction of labor Information Provided By: Patient Age: 24 : 2 Livin Care Care: Good Care Dating Final EDC: Sep 07, 2020 Final EDC by: LMP Past Medical History Past Obstetrical History : Date of Delivery: Sep 11, 2016 Type of Delivery: Spontaneous Vaginal Del. Sex of Infant: Female Past Medical History Surgical History: Denies/None Family History Significant Family History: Diabetes Social History Marital Status: Single Psychosocial History: No pertinent psych hx Alcohol: Denies Drugs: denies Allergies Coded Allergies: amoxicillin (Verified Allergy, Unknown, 05/06/19) RASH Medications Miscellaneous Medications Aspirin (Aspirin) 81 Mg Tab.chew Physical Examination Physical Examination GENERAL: Alert and oriented times three. BREAST: . ABDOMEN: Gravid and non-tender to touch. FETUS: Is vertex (VTX) by sterile vaginal examination (SVE), fetus is vertex (VTX) by [place]. HEART RATE: Regular rate and rhythm. LUNGS: Clear to auscultation (CTA). Vital Signs/I&O Vital Signs Date Time Temp Pulse Resp B/P (MAP) Pulse Ox O2 Delivery O2 Flow Rate FiO2 09/11/20 18:17 90 130/74 (92) Laboratory Data 24H LABS Laboratory Tests 2 09/11/20 12:44: Serology Scanned Report Hepatitis B Testing 09/11/20 13:37: Nucleated Red Blood Cells % (auto) 0.0, Glomerular Filtration Rate > 60.0, Uric Acid 4.5, Total Bilirubin 0.4, Aspartate Amino Transf (AST/SGOT) 7, Alanine Aminotransferase (ALT/SGPT) 10L, Lactate Dehydrogenase 174, Syphilis Serology NONREACTIVE 09/11/20 14:11: Urine Color YELLOW, Urine Appearance HAZY, Urine pH 6.0, Urine Specific [place] 1.023, Urine Protein 1+H, Urine Glucose (Auto)(UA) NEGATIVE, Urine Ketones (Auto) NEGATIVE, Urine Blood NEGATIVE, Urine Nitrite NEGATIVE, Urine Bilirubin NEGATIVE, Urine Urobilinogen 0.2, Urine Leukocyte Esterase (Auto) NEGATIVE, Urine WBC (Auto) 2, Urine RBC (Auto) 1, Urine Hyaline Casts (Auto) 0, Urine Bacteria (Auto) NEGATIVE, Urine Squamous Epithelial Cells 3, Urine Mucus (Auto) SMALL, Urine Sperm (Auto) , Urine Random Creatinine 231.0, Urine Random Total Protein 44.2H CBC/BMP Laboratory Tests 09/11/20 13:37 Pertinent Laboratoy Data Blood Type: B+ RBC Antibody Screen: Negative HIV: Negative Hepatitis B: Negative Hepatitis C: Negative Rapid Plasma Reagin: Nonreactive Rubella: Immune Chlamydia/Gonorrhea: Negative Group B Streptococcus: Negative Glucose Tolerance Test: 88 Anatomy Ultrasound Placenta Location: Anterior Normal Anatomy: Yes Placenta Previa: No Vaginal Examination Dilation: 1cm Effacement: 50% Station: -3 Presentation: Cephalic presentation Assessment Variability: Moderate Decelerations: None Assessment/Plan Assessment 24-year-old 2 para 1 at 40 weeks 4 days estimated gestational age with gestational hypertension Reassuring status Plan Admit and orient. Human Resources Coordinator and consent. Diet: Regular. Group B Streptococcus (GBS) negative. Labs and intravenous (IV) per unit protocol. Counseled on Pitocin and induction of labor (IOL). Anticipate normal spontaneous delivery (). C-S as appropriate. Labor and Delivery Counseling -Patient been thoroughly counseled in regards to induction labor. Patient has been counseled on medications as well as procedures performed in labor and delivery. Patient also verbally consented to the emergency surgery blood products anesthesia and desires to proceed with induction of labor. Will initiate her induction with 50g of misoprostol orally. RICKY MATIAS MD. Sep 11, 2020 23:23
[2020-09-12] VITALS (13 sets, daily range): BP systolic 117–152; BP diastolic 58–91
[2020-09-12] MEDS ORDERED: BUTORPHANOL 2 MG/ML INJ (J0595) IV ONE (01:25)
[2020-09-12] MEDS ORDERED: PROMETHAZINE INJ 25 MG/ML VIAL (J2550) IV ONE (01:25)
[2020-09-12] MEDS ORDERED: OXYTOCIN DRIP 30 UNITS in IV 1 EA IV SCH (04:21)
[2020-09-12] MEDS ORDERED: IBUPROFEN 800 MG TAB PO PRN (04:25)
[2020-09-12] MEDS ORDERED: MEASLES,MUMPS,RUBELLA VACCINE INJ (MMR-II) (90707) SC SCH (04:25)
[2020-09-12] MEDS ORDERED: IBUPROFEN 600MG TAB PO PRN (04:25)
[2020-09-12] MEDS ORDERED: ANUSOL HC CREAM 30GM TOP PRN (04:25)
[2020-09-12] MEDS ORDERED: RHOGAM 300 MCG (1500 IU) INJ (J2790) IM SCH (04:25)
[2020-09-12] MEDS ORDERED: DOCUSATE SODIUM 100MG CAPSULE PO PRN (04:25)
[2020-09-12] MEDS ORDERED: METHYLERGONOVINE MALEATE 0.2 MG TAB PO PRN (04:25)
[2020-09-12] MEDS ORDERED: MOM 30ML SUSPENSION UDC PO PRN (04:25)
[2020-09-12] MEDS ORDERED: DIBUCAINE 1% OINTMENT 30GM TOP PRN (04:25)
[2020-09-12] MEDS ORDERED: ACETAMINOPHEN TAB 650MG DOSE (2X325MG) PO PRN (04:25)
[2020-09-12] MEDS ORDERED: ACETAMINOPHEN 500 MG TAB PO PRN (04:25)
--- NOTE | 2020-09-12 04:27 | DNPDOC ---
[facility] Delivery Note Delivery Note DATE OF DELIVERY: 09/12/20 TIME OF : 0404 GENDER: Male. APGARS: 8 and 9 WEIGHT: 2090 g or 6 lbs. 6 oz. LACERATIONS: none ANESTHESIA: none ESTIMATED BLOOD LOSS: 200ml COUNTS: 5 laparotomy sponges accounted for prior to after delivery. DELIVERY NOTE: On September 12 2020 at 0404. Ms. Manasa morris G2, now P2 had a spontaneous vaginal delivery of a liveborn male Apgars 8 and 9 weight was 2090 g 6 lbs. 6 oz. Head was delivered occiput anterior (OA). There was a nuchal cord which was manually reduced, followed by delivery of the shoulders and corpus. was handed to mom with a good cry. Cord was clamped times two and was cut by support person under my direction. Placenta was then drained and delivered grossly intact. A premixed bag of 500 mL of normal saline with 30 units of Pitocin was then bolused along with uterine massage until the uterus was firm. On inspection , cervix, vagina, perineum was grossly intact and hemostatic. Mom and baby in recovery on stable condition. Mom has decided to name her son Anjel MATIASRICKY MD. Sep 12, 2020 04:26
[2020-09-12] MEDS: PRENATAL VITAMINS CHEWABLE TABLET PO SCH (10:37)
[2020-09-13 06:00] VITALS: BP 140/77
[2020-09-13] MEDS: PRENATAL VITAMINS CHEWABLE TABLET PO SCH (07:35)
== END 2020-09-13 11:55 | disposition home or self-care (01) | DRG 560 ==
LOC: M LDI 12:33 → M OBS 09-12 05:58
PROVIDERS: ADMIT Obstetrics & Gynecology; ATTEND Obstetrics & Gynecology
PROC: 3E0P7GC Introduction of Other Therapeutic Substance into Female Reproductive, Via Natural or Artificial Opening (ICD-10-PCS; 2020-09-11)
PROC: 10E0XZZ Delivery of Products of Conception, External Approach (ICD-10-PCS; principal; 2020-09-12)
DX: O13.4 Gestational [pregnancy-induced] hypertension without significant proteinuria, complicating childbirth (principal); O48.0 Post-term pregnancy; Z3A.40 40 weeks gestation of pregnancy; Z37.0 Single live birth; O69.81X0 Labor and delivery complicated by cord around neck, without compression, not applicable or unspecified

== ENCOUNTER → 2022-11-06 | Outpatient (REF) | payer OTHER ==
[~2022-11-06] MED LIST changes: +ASPI81CH10; -CEFD1CAP8 PO; +CEFD300C41 PO; -LABE300T2 PO; +LABE300T55 PO
== END ==
LOC: M LAB REF 12:45
PROVIDERS: ATTEND Physician Assistant
DX: J02.9 Acute pharyngitis, unspecified (principal)

== ENCOUNTER 2023-05-03 13:30 | Observation (INO) | payer MEDICAID, OTHER ==
[~2023-05-03] VITALS: Ht 160 cm; Wt 101.4 kg
[~2023-05-03 13:30] MED LIST changes: -CEFD300C41 PO; +CEFD300C42 PO
[2023-05-03] MEDS ORDERED: NS 1,000 ML IV ONE (16:30)
[2023-05-03] MEDS ORDERED: KETOROLAC 30 MG/ML 1ML VIAL IV ONE (16:35)
[2023-05-03 17:25] LABS: BASO % 0.3 % (0.0-1.0); EOS # 0.1 10^3/uL (0.0-0.5); EOS % 0.7 % (0.0-3.0); HEMATOCRIT 39.1 % (36.0-47.0); HEMOGLOBIN 13.2 g/dl (12.0-15.5); LYMPH # 2.8 10^3/uL (1.5-5.0); LYMPH % 26.6 % (24.0-44.0); MEAN CORPUSCULAR HEMOGLOBIN 30.6 pg (27.0-33.0); MEAN CORPUSCULAR HGB CONC 33.8 g/dl (32.0-36.5); MEAN CORPUSCULAR VOLUME 90.7 fl (80.0-96.0); MONO # 0.5 10^3/uL (0.0-0.8); MONO % 4.9 % (2.0-8.0); NEUTROPHILS # 7.2 10^3/uL (1.5-8.5); NEUTROPHILS % 67.2 % (36.0-66.0); PLATELET COUNT, AUTOMATED 229 10^3/uL (150-450); RED BLOOD COUNT 4.31 10^6/uL (4.00-5.40); WHITE BLOOD COUNT 10.7 10^3/uL (4.0-10.0)
[2023-05-03] MEDS ORDERED: NORCO, ANEXSIA 5/325MG TABLET (HYDROcodone/ACETAMINOPHEN) PO ONE (17:30)
[2023-05-03 17:56] LABS: LIPASE 30 U/L (12-53)
[2023-05-03 17:58] LABS: ALBUMIN 3.8 G/DL (3.2-5.2); ALKALINE PHOSPHATASE 50 U/L (46-116); ALT/SGPT 24 U/L (7.0-40); AST/SGOT 15 U/L (<34); BILIRUBIN,DIRECT 0.3 MG/DL (<0.4); BILIRUBIN,TOTAL 0.8 MG/DL (0.3-1.2); BLOOD UREA NITROGEN 9 MG/DL (9-23); CALCIUM LEVEL 8.6 MG/DL (8.5-10.1); CARBON DIOXIDE LEVEL 22 MMOL/L (20-31); CHLORIDE LEVEL 107 MMOL/L (98-107); CREATININE FOR GFR 0.57 MG/DL (0.55-1.30); GLOMERULAR FILTRATION RATE > 60.0 (>60); GLUCOSE, FASTING 81 MG/DL (60-100); SODIUM LEVEL 139 MMOL/L (136-145); TOTAL PROTEIN 6.3 G/DL (5.7-8.2)
[2023-05-03] MEDS ORDERED: MED REC IN PROGRESS XX SCH (20:45)
[2023-05-03] MEDS ORDERED: MAPA500C PO (21:05)
[2023-05-03] MEDS ORDERED: IBUP80TA PO (21:05)
[2023-05-03] MEDS ORDERED: HOME MED LIST COMPLETE! XX SCH (21:05)
[2023-05-03] MEDS ORDERED: ISIB1TAB PO (21:05)
[2023-05-03] MEDS ORDERED: fentaNYL 100 MCG/2 ML INJECTION As Ordered ONE ×2 (22:00→22:52)
[2023-05-03] MEDS ORDERED: MIDAZOLAM INJ 2MG/2ML VIAL As Ordered ONE (22:00)
[2023-05-03] MEDS ORDERED: LIDOCAINE 2% 100MG/5ML SDV (FOR ANES.) As Ordered ONE (22:11)
[2023-05-03] MEDS ORDERED: ROCURONIUM BROMIDE 50MG/5ML VIAL As Ordered ONE (22:12)
[2023-05-03] MEDS ORDERED: propofoL 200 MG/20 ML VIAL As Ordered ONE (22:12)
[2023-05-03] MEDS ORDERED: SUCCINYLCHOLINE 100MG/5ML SYRINGE As Ordered ONE (22:12)
[2023-05-03] MEDS ORDERED: ACETAMINOPHEN 1000MG 100ML IV BAG As Ordered ONE (22:55)
[2023-05-03] MEDS ORDERED: SUGAMMADEX SODIUM 500 MG/5 ML VIAL (BRIDION) As Ordered ONE (23:19)
[2023-05-03] MEDS ORDERED: KETOROLAC 60MG 2ML VIAL As Ordered ONE (23:19)
[2023-05-03] MEDS ORDERED: oxyCODONE 5MG TAB PO PRN (23:40)
[2023-05-03] MEDS ORDERED: fentaNYL 100 MCG/2 ML INJECTION IV PRN (23:40)
[2023-05-03] MEDS ORDERED: HYDROMORPHONE HCL 0.5 MG/ 0.5 ML SYRINGE IV PRN (23:40)
[2023-05-03] MEDS ORDERED: LR 1,000 ML IV SCH (23:40)
[2023-05-03] MEDS ORDERED: METOCLOPRAMIDE INJ 10MG/2ML VIAL IV PRN (23:40)
[2023-05-03] MEDS ORDERED: PROMETHAZINE 25MG/ML 1ML VIAL IV PRN (23:40)
[2023-05-03] MEDS ORDERED: diphenhydrAMINE 50MG/ML VIAL IV PRN (23:40)
[2023-05-03] MEDS ORDERED: ONDANSETRON 4MG 2ML VIAL IV PRN (23:40)
[2023-05-03] MEDS ORDERED: IBUPROFEN 800 MG TAB PO PRN (23:55)
[2023-05-04] VITALS (8 sets, daily range): BP systolic 102–133; BP diastolic 56–66; TEMP 97.5–98; O2SAT 94–97
[2023-05-04] MEDS: PERCOCET 5MG/325MG TAB PO PRN ×2 (03:57→08:15)
[2023-05-04] MEDS ORDERED: OXYC1TAB23 PO (07:44)
[2023-05-04] MEDS ORDERED: IBUP80TA PO (07:44)
== END 2023-05-04 10:25 | disposition home or self-care (01) ==
LOC: M ED 13:30 → M OROP 21:02 → M PED 05-04 00:07
PROVIDERS: ADMIT Specialist; ATTEND Specialist
DX: O00.102 Left tubal pregnancy without intrauterine pregnancy (principal); E66.9 Obesity, unspecified; F17.218 Nicotine dependence, cigarettes, with other nicotine-induced disorders
CPT/HCPCS: 59151; 59812; 76801; 80048; 80076; 81001; 83690; 84702; 85025; 86850; 86900; 86901; 86920; 87635; 88305; 93976; 96374; 99284; J0131; J0330; J0665; J1100; J1885; J3010